=== PATIENT | female | born 2000 | race Caucasian/White ===

== ENCOUNTER 2021-05-11 10:49 | Emergency (ER) | payer OTHER ==
[~2021-05-11] VITALS: Ht 152.4 cm; Wt 63.5 kg
[~2021-05-11 10:49] MED LIST: CHATEAL1 EACH; FLAGYL500 MG PO; IBUPROFEN 800800 MG PO; LOESTRIN1 EAC1; PREDNISONE50 MG PO; PREFERA OB TAB1 EACH PO; PROMETHAZINE-D120 ML PO; TRAMADOL 50 MG50 MG PO; TUSSIONEX PENN115 ML PO
[2021-05-11 11:05] VITALS: BP 118/76
[2021-05-11] MEDS ORDERED: PENICILLIN V P500 MG PO ×2 (11:30→11:47)
[2021-05-11] MEDS ORDERED: ULTRAM 50MG TAB50 MG PO ×2 (11:30→11:47)
== END 2021-05-11 12:00 | disposition home or self-care (01) ==
LOC: ER 10:49
DX: K04.7 Periapical abscess without sinus (principal); F17.210 Nicotine dependence, cigarettes, uncomplicated; Z98.890 Other specified postprocedural states; Z88.1 Allergy status to other antibiotic agents; Z88.5 Allergy status to narcotic agent

== ENCOUNTER 2021-08-25 11:44 | Emergency (ER) | payer OTHER ==
[~2021-08-25] VITALS: Ht 152.4 cm; Wt 61.2 kg
[~2021-08-25 11:44] MED LIST changes: +PENICILLIN V P500 MG PO; +ULTRAM 50MG TAB50 MG PO
[2021-08-25] MEDS ORDERED: BIRTH CONTROL TOP (12:04)
[2021-08-25 12:35] LABS: ABSOLUTE NEUTROPHILS 6.7 thou/uL (1.4-8.2); BASOPHILS 0.4 % (0.0-2.0); EOSINOPHILS 6.5 % (0.0-3.0); HEMATOCRIT 44.3 % (37.0-47.0); HEMOGLOBIN 14.7 gm/dL (12.0-15.0); LYMPHOCYTES 22.5 % (24.0-44.0); MCH 28.1 pg (26.0-34.0); MCHC 33.3 g/dL (28.0-37.0); MCV 84.5 fL (80.0-100.0); MONOCYTES 4.2 % (1.0-8.0); PLATELET COUNT 368 thou/uL (150-400); POLYS 66.4 % (36.0-66.0); RBC 5.25 mil/uL (4.20-5.00); RDW 12.6 % (10.5-14.5); WBC 10.1 thou/uL (4.0-11.0)
[2021-08-25 12:37] LABS: URINE BILIRUBIN NEGATIVE (Negative); URINE BLOOD NEGATIVE (Negative); URINE CLARITY CLEAR; URINE COLOR YELLOW; URINE GLUCOSE-RANDOM* NEGATIVE (Negative); URINE KETONES NEGATIVE (Negative); URINE LEUKOCYTES-REFLEX TRACE (Negative); URINE NITRITE-REFLEX NEGATIVE (Negative); URINE PROTEIN (DIPSTICK) NEGATIVE (Negative); URINE UROBILINOGEN 0.2 E.U./dl (0.2-1.0)
[2021-08-25 12:48] LABS: CREATININE 0.7 mg/dL (0.6-1.0); POTASSIUM 3.3 mmol/L (3.5-5.1)
[2021-08-25 12:54] LABS: ALBUMIN 3.4 g/dL (3.4-5.0); TOTAL BILIRUBIN 0.3 mg/dL (0.2-1.0); TOTAL PROTEIN 7.1 g/dL (6.4-8.2)
[2021-08-25] MEDS ORDERED: FLAGYL500 M1 PO (15:20)
[2021-08-25] MEDS ORDERED: CIPRO500 M1 PO (15:20)
[2021-08-25 15:30] VITALS: BP 121/84
== END 2021-08-25 15:30 | disposition home or self-care (01) ==
LOC: ER 11:44
PROVIDERS: Physician Assistant
DX: R10.84 Generalized abdominal pain (principal); R19.7 Diarrhea, unspecified; R11.0 Nausea; Z88.1 Allergy status to other antibiotic agents; Z90.89 Acquired absence of other organs

== ENCOUNTER 2021-12-22 18:03 | Emergency (ER) | payer OTHER ==
[~2021-12-22] VITALS: Ht 152.4 cm; Wt 59.0 kg
[~2021-12-22 18:03] MED LIST changes: +BIRTH CONTROL TOP; +CIPRO500 M1 PO; +FLAGYL500 M1 PO
[2021-12-22] MEDS ORDERED: SUPER THERAVIT1 EACH PO (18:14)
[2021-12-22] MEDS ORDERED: MUCINEX600 MG PO (18:15)
[2021-12-22 19:51] LABS: URINE BLOOD 3+ (Negative); URINE GLUCOSE-RANDOM* NEGATIVE (Negative); URINE KETONES NEGATIVE (Negative); URINE LEUKOCYTES-REFLEX NEGATIVE (Negative); URINE NITRITE-REFLEX NEGATIVE (Negative); URINE PROTEIN (DIPSTICK) TRACE (Negative); URINE SPECIFIC GRAVITY >= 1.030 (1.005-1.035); URINE UROBILINOGEN 0.2 E.U./dl (0.2-1.0)
[2021-12-22 19:54] LABS: ICTOTEST (BILI CONFIRMATORY) Negative (Negative); URINE BILIRUBIN NEGATIVE (Negative); URINE CLARITY HAZY; URINE COLOR YELLOW
[2021-12-22 20:03] LABS: BASOPHILS 0.4 % (0.0-2.0); EOSINOPHILS 0.2 % (0.0-3.0); HEMATOCRIT 43.7 % (37.0-47.0); HEMOGLOBIN 14.8 gm/dL (12.0-15.0); LYMPHOCYTES 5.8 % (24.0-44.0); MCH 29.3 pg (26.0-34.0); MCHC 33.8 g/dL (28.0-37.0); MCV 86.7 fL (80.0-100.0); MONOCYTES 4.3 % (1.0-8.0); PLATELET COUNT 414 thou/uL (150-400); POLYS 89.3 % (36.0-66.0); RBC 5.04 mil/uL (4.20-5.00); RDW 12.6 % (10.5-14.5); WBC 11.2 thou/uL (4.0-11.0)
[2021-12-22 20:11] LABS: SQUAMOUS 4-10 Moderate /LPF (0-3)
[2021-12-22 20:12] LABS: CASTS None Seen /LPF (None Seen); CRYSTALS None Seen /LPF (None Seen); MUCUS >6 Heavy strn/LPF (None Seen); URINE RBC 3-10 Few /HPF (NONE SEEN); URINE WBC-REFLEX 0-5 Rare /HPF (0-5)
[2021-12-22 20:21] LABS: CALCIUM 9.6 mg/dL (8.5-10.1); CREATININE 0.7 mg/dL (0.6-1.0); POTASSIUM 3.9 mmol/L (3.5-5.1)
[2021-12-22 20:26] LABS: ALBUMIN 3.9 g/dL (3.4-5.0); TOTAL BILIRUBIN 0.4 mg/dL (0.2-1.0); TOTAL PROTEIN 7.9 g/dL (6.4-8.2)
[2021-12-22] MEDS ORDERED: ZOFRAN ODT4 MG PO (20:33)
[2021-12-22 20:44] VITALS: BP 120/74
--- NOTE | 2021-12-23 09:59 | EKG ---
[address] [address] ELECTROCARDIOGRAM REPORT Name: WAI BLOOM [facility] [id number] Admission: 12/22/21 Attend Phys: Discharge: 12/22/21 Date of : [birth year] Report #: [id number] [facility] ED Test Date: 2021-12-22 Test Time: 20:22:12 Pat Name: WAI BLOOM Department: Room: Gender: F Virtual Office Assistant: Leobardo Mendoza : 2000 Requested By: Alcira Brink Order Number: [id number] MD: Darío Durbin Measurements Intervals [place] Rate: 91 P: 69 CA: 136 QRS: 105 QRSD: 80 T: 33 QT: 355 QTc: 437 Interpretive Statements Sinus rhythm Borderline right axis deviation No previous ECG available for comparison Electronically Signed On 12-23-2021 9:59:00 [employer] by Darío Durbin [email or web address] <ELECTRONICALLY SIGNED> By: Darío Durbin MD, [facility] 12/23/21 0959 21 21 Darío Durbin MD, FACC /EPI
== END 2021-12-22 20:44 | disposition home or self-care (01) ==
LOC: ER 18:03
PROVIDERS: Physician Assistant
DX: K52.9 Noninfective gastroenteritis and colitis, unspecified (principal); Z20.822 Contact with and (suspected) exposure to COVID-19; E86.0 Dehydration; G43.909 Migraine, unspecified, not intractable, without status migrainosus; F17.210 Nicotine dependence, cigarettes, uncomplicated; Z98.890 Other specified postprocedural states; Z79.899 Other long term (current) drug therapy; Z88.8 Allergy status to other drugs, medicaments and biological substances